=== PATIENT | male | born 1985 | race American Indian/Alaskan Native ===

== ENCOUNTER 2020-09-27 14:59 | Emergency (ER) | payer MEDICAID ==
[2020-09-27] MEDS ORDERED: KETOROLAC 30 MG/1 ML INJ IV ONE (20:43)
[2020-09-27] MEDS ORDERED: SODIUM CHLORIDE 0.9% 500 ML 500 ML IV ONE (20:43)
--- NOTE | 2020-09-27 20:57 | Emergency Department Report ---
ED Chest Pain HPI - General Chief Complaint: Chest Pain Stated Complaint: CHEST PAINS Time Seen by Provider: 09/27/20 20:37 Source: patient Mode of arrival: Ambulatory Limitations: No Limitations - History of Present Illness Initial Comments: This is a 35-year-old -Citizen Of [place] male who presents to the emergency department with a complaint of some midsternal to left-sided chest pain, and a left frontal headache, that has been going on for the past 2 to 3 days. Patient has a past medical history of some type of developmental delay and his mother is currently at bedside. He denies any shortness of breath, nausea, vomiting, vision change, slurred speech, numbness or paresthesias, weakness. He has not taken anything for symptoms prior to presentation. He does not smoke or use any illicit drugs. No recent travel or sick contacts at home. Earlier today while at [facility] the patient had an episode in which he passed out. EMS evaluated him and he had a normal blood pressure and blood sugar at that time. - Related Data Allergies Allergy/AdvReac Type Severity Reaction Status Date / Time No Known Allergies Allergy Unverified 09/27/20 15:11 Heart Score - HEART Score History: Slightly suspicious EKG: Non-specific Age: < 45 Risk factors: No known risk factors Troponin: < normal limit HEART Score: 1 - EKG Read Time Time EKG Completed: 15:16 EKG Read Time: 15:27 (Discusse with Dr Rhodes) - Critical Actions Critical Actions: 0-3 pts:0.9-1.7%risk of adverse cardiac event.Candidate for discharge ED Review of Systems ROS: Stated complaint: CHEST PAINS Other details as noted in HPI ED Past Medical Hx - Past Medical History Previous Medical History?: Yes Additional medical history: Learning disabilities - Surgical History Past Surgical History?: Yes Additional Surgical History: Andrew in his back. ED Physical Exam - General Limitations: No Limitations - Other Other exam information: GENERAL: The patient is well-developed well-nourished. HENT: Normocephalic. Atraumatic. Patient has moist mucous membranes. EYES: Extraocular motions are intact. NECK: Supple. Trachea is midline. CHEST/LUNGS: Clear to auscultation. There is no respiratory distress noted. There is reproducible midsternal to left-sided chest pain to palpation of the chest wall. No crepitus or deformity. HEART/CARDIOVASCULAR: Regular. There is no tachycardia. There is no murmur. ABDOMEN: Abdomen is soft, nontender. Patient has normal bowel sounds. There is no abdominal distention. SKIN: Skin is warm and dry. NEURO: The patient is awake, alert, and oriented. The patient is cooperative. Normal speech. MUSCULOSKELETAL: There is no tenderness or deformity. There is no limitation range of motion. ED Course Vital Signs 09/27/20 09/27/20 09/27/20 15:11 20:57 21:28 Temperature 98.5 F 98.7 F Pulse Rate 95 H 82 Respiratory 20 16 18 Rate Blood Pressure 129/92 Blood Pressure 119/85 [Left] O2 Sat by Pulse 99 100 Oximetry MALINI score - Malini Score Age > 65: (0) No Aspirin use within the Past 7 Days: (0) No 3 or more CAD Risk Factors: (0) No 2 or more Angina events in past 24 hrs: (0) No Known CAD with more than 50% Stenosis: (0) No Elevated Cardiac Markers: (0) No ST Deviation Greater than 0.5mm: (0) No MALINI Score: 0 ED Medical Decision Making - Lab Data Result diagrams: 09/27/20 20:55 09/27/20 20:55 - EKG Data -: EKG Interpreted by Me EKG shows normal: sinus rhythm, axis, intervals, QRS complexes (Early repolarization), ST-T waves Rate: normal - EKG Data When compared to previous EKG there are: previous EKG unavailable Interpretation: normal EKG - Radiology Data Radiology results: image reviewed interpreted by me: Chest x-ray does not show any acute process. There are no pleural effusions, obvious pneumonia and there is no pneumothorax. No widened mediastinum. - Medical Decision Making This patient presents to the ER with a 2 to 3-day history of some midsternal to left-sided chest pain, and a left frontal headache. On examination he does not have any focal, motor or sensory deficits, and his cranial nerves are intact. Heart and lung sounds are normal to auscultation. There is reproducible chest pain to palpation of the chest wall, without any crepitus or deformity. EKG does not have any morphology consistent with ST elevation myocardial infarction. Chest x-ray does not show any pneumonia, pleural effusions, pneumothorax, widened mediastinum, or any other acute process. Labs have been unremarkable including CBC, metabolic panel and a negative troponin. The patient was given IV fluid resuscitation and a dose of IV Toradol. Upon reevaluation the headache has resolved and the chest pain has greatly improved to the point where it also has almost resolved. Vital signs have been reassuring throughout his ED course. He has been reevaluated multiple times over multiple hours and there has been no further syncopal episodes. I did not feel that the patient required CT imaging of the head at this time. He has good outpatient follow-up with primary care. Critical Care Time: No Critical care attestation.: If time is entered above; I have spent that time in minutes in the direct care of this critically ill patient, excluding procedure time. ED Disposition Clinical Impression: Atypical chest pain, Costochondritis Headache Qualifiers: Headache type: unspecified Headache chronicity pattern: unspecified pattern Intractability: not intractable Qualified Code(s): R51.9 - Headache, unspecified Disposition: DC- TO HOME OR SELFCARE Is pt being admited?: No Condition: Stable Instructions: General Headache Without Cause, Chest Wall Pain, Costochondritis Additional Instructions: Please follow-up with your primary care physician in the next few days. Return to the emergency department with any worsening of your symptoms, new or concerning symptoms not addressed during this current emergency department visit, or with any acute distress. Referrals: [facility] [Other] - 2-3 Days Time of Disposition: 22:09
[2020-09-27 21:13] LABS: Basophils # (Auto) 0.1 K/mm3 (0.0-0.1); Basophils % (Auto) 0.6 % (0.0-1.8); Eosinophils % (Auto) 0.1 % (0.0-4.3); Hematocrit 46.3 % (35.5-45.6); Hemoglobin 15.7 gm/dl (11.8-15.2); Lymphocytes # (Auto) 1.6 K/mm3 (1.2-5.4); Lymphocytes % (Auto) 16.2 % (13.4-35.0); Mean Corpuscular HGB Conc 34 % (32-34); Mean Corpuscular Volume 92 fl (84-94); Monocytes # (Auto) 0.9 K/mm3 (0.0-0.8); Monocytes % (Auto) 9.3 % (0.0-7.3); Platelet Count 171 K/mm3 (140-440); Red Blood Count 5.05 M/mm3 (3.65-5.03); Red Cell Distribution Width 14.8 % (13.2-15.2)
[2020-09-27 21:27] LABS: INR 0.94 (0.87-1.13)
[2020-09-27 21:32] LABS: BUN/Creatinine Ratio 12; Blood Urea Nitrogen 11 mg/dL (9-20); Hemolysis Index 17
--- NOTE | 2020-09-27 21:44 | XRay Report ---
XR chest routine 2V INDICATION / CLINICAL INFORMATION: Chest Pain. COMPARISON: None available. FINDINGS: SUPPORT DEVICES: None. HEART /PULMONARY VASCULATURE: No significant abnormality. LUNGS / PLEURA: No significant pulmonary or pleural abnormality. No pneumothorax. ADDITIONAL FINDINGS: Scoliosis and thoracic fixation rods noted. No evidence of hardware complication . IMPRESSION: 1. No acute findings. Signer Name: Parviz Marrufo MD Signed: 09/27/2020 9:40 PM Workstation Name: [id number]
[2020-09-27 23:20] VITALS: BP 122/81
--- NOTE | 2020-09-28 10:15 | Electrocardiograph Report ---
[facility] Test Date: 2020-09-27 Test Time: 15:16:01 Pat Name: MARTIN GUIDO Department: Room: Gender: M Supervisor Laboratory Animal Facility: [facility] : 1985 Requested By: ADITYA MONTES Order Number: [id number] Reading MD: Efrain Enrique Measurements Intervals [place] Rate: 88 P: 68 VT: 163 QRS: 80 QRSD: 88 T: 72 QT: 349 QTc: 423 Interpretive Statements Sinus rhythm Probable left atrial enlargement Probable left ventricular hypertrophy ST elevation secondary to LVH No previous ECG available for comparison Electronically Signed On 09-28-2020 10:15:21 EDT by Efrain Enrique
== END 2020-09-27 22:50 | disposition home or self-care (01) ==
LOC: ED 14:59
DX: M94.0 Chondrocostal junction syndrome [Tietze] (principal); R07.89 Other chest pain; R51.9 Headache, unspecified; Z98.890 Other specified postprocedural states
CPT/HCPCS: 36415; 71046; 80048; 84484; 85025; 85610; 93005; 96361; 96374; 99284; J1885; J7040